=== PATIENT | male | born 1985 | race Caucasian/White ===

== ENCOUNTER 2023-05-25 17:01 | Emergency (ER) | payer OTHER ==
[~2023-05-25] VITALS: Ht 185.4 cm; Wt 103.1 kg
[2023-05-25 17:15] VITALS: TEMP 97.8
[2023-05-25 18:10] LABS: RED CELL DISTRIBUTION WIDTH 14.7 % (11.5-14.5)
[2023-05-25 18:12] LABS: BASOPHILS % (AUTO) 0.5 % (0-1); EOSINOPHILS # (AUTO) 0.3 X10'3 (0-0.9); EOSINOPHILS % (AUTO) 2.6 % (0-6); HEMATOCRIT 38.4 % (42.0-52.0); HEMOGLOBIN 12.7 g/dl (14.0-17.9); LYMPHOCYTES # (AUTO) 1.2 X10'3 (1.1-4.8); LYMPHOCYTES % (AUTO) 12.5 % (21-51); MEAN CORPUSCULAR HEMOGLOBIN 23.5 PG (27.0-31.0); MEAN CORPUSCULAR VOLUME 71.3 FL (78-98); MEAN PLATELET VOLUME 8.6 FL (7.4-10.4); MONOCYTES % (AUTO) 10.2 % (2-12); NEUTROPHILS # (AUTO) 7.2 X10'3 (1.8-7.7); NEUTROPHILS % (AUTO) 74.2 % (42-75); PLATELET COUNT 312 X10'3 (140-440); RED BLOOD COUNT 5.39 X10'6 (4.70-6.10); WHITE BLOOD COUNT 9.7 X10'3 (4.5-11.0)
[2023-05-25 18:28] LABS: ALANINE AMINOTRANSFERASE 61 U/L (12-78); ALBUMIN 3.5 G/DL (3.4-5.0); ALBUMIN/GLOBULIN RATIO 0.7 (1.1-1.5); ALKALINE PHOSPHATASE 79 IU/L (46-116); ANION GAP 4 (8-16); ASPARTATE AMINO TRANSFERASE 22 U/L (10-37); BILIRUBIN,TOTAL 0.6 MG/DL (0.1-1.0); BLOOD UREA NITROGEN 18 MG/DL (7-18); BUN/CREATININE RATIO 14.5 (10.0-20.0); CALCIUM 8.4 MG/DL (8.5-10.1); CHLORIDE 101 MMOL/L (99-107); CREATININE 1.24 MG/DL (0.60-1.10); GLUCOSE 100 MG/DL (70-104); POTASSIUM 3.9 MMOL/L (3.5-5.1); SODIUM 138 MMOL/L (135-145); TOTAL CARBON DIOXIDE 33.3 MMOL/L (24-32); TOTAL PROTEIN 8.2 G/DL (6.4-8.2); eCRCL 90 ML/MIN; eGFR 65 ML/MIN
[2023-05-25 18:34] LABS: PRO BRAIN NATRIURETIC PEPTIDE 66 PG/ML (0-125)
[2023-05-25] MEDS ORDERED: PRED20TA PO (19:41)
[2023-05-25] MEDS ORDERED: ALBU8HFA INH (19:42)
[2023-05-25] MEDS: ketorolac trometh inj. 60 MG/2 ML VIAL IM ONE (19:54)
[2023-05-25] MEDS: dexamethasone sod phosphate 10mg/ml inj IM STA (19:55)
[2023-05-25 20:21] VITALS: BP 117/76; PULSE 78; RESP 17; O2SAT 97
== END 2023-05-25 20:43 | disposition home or self-care (01) ==
LOC: ER 17:01
DX: R09.1 Pleurisy (principal); Z79.899 Other long term (current) drug therapy
CPT/HCPCS: 36415; 71045; 80053; 85025; 93005; 96372; 99285; J1100; J1885; 80048; 83880